=== PATIENT | female | born 1990 | race Caucasian/White ===

== ENCOUNTER 2016-07-01 13:19 | Emergency (ER) | payer MEDICAID, OTHER ==
[~2016-07-01] VITALS: Wt 56.3 kg
[2016-07-01 14:44] LABS: ADD SCAN DIFF NO
[2016-07-01 14:46] LABS: BASOPHIL # 0.1 10^3/ul (0.0-0.1); BASOPHILS % 0.7 % (0.0-2.0); EOSINOPHILS # 0.1 10^3/ul (0.0-0.5); EOSINOPHILS % 0.9 % (0.0-7.0); HEMATOCRIT 39.3 % (37.0-47.0); HEMOGLOBIN 13.1 g/dl (12.0-16.0); LYMPHOCYTES # 1.7 10^3/ul (0.8-2.9); LYMPHOCYTES % 22.4 % (15.0-51.0); MEAN CORPUSCULAR HEMOGLOBIN 29.4 pg (29.0-33.0); MEAN CORPUSCULAR HGB CONC 33.3 g/dl (32.0-37.0); MEAN CORPUSCULAR VOLUME 88.1 fl (82.0-101.0); MEAN PLATELET VOLUME 10.3 fl (7.4-10.4); MONOCYTE # 0.4 10^3/ul (0.3-0.9); MONOCYTES % 4.7 % (0.0-11.0); NEUTROPHIL # 5.4 10^3/ul (1.6-7.5); PLATELET COUNT 226 10^3/UL (140-415); RED BLOOD COUNT 4.46 10^6/ul (4.20-5.40); RED CELL DISTRIBUTION WIDTH 12.2 % (11.5-14.5); WHITE BLOOD COUNT 7.6 10^3/ul (4.8-10.8)
[2016-07-01 14:58] LABS: ADD UMIC YES; URINE BILIRUBIN (Dip) NEGATIVE (NEGATIVE); URINE BLOOD (Dip) 3+ (NEGATIVE); URINE COLOR LT. YELLOW (YELLOW); URINE GLUCOSE (Dip) NEGATIVE (NEGATIVE); URINE KETONES (Dip) NEGATIVE (NEGATIVE); URINE LEUKOCYTE ESTERASE (Dip) TRACE (NEGATIVE); URINE NITRITE (Dip) NEGATIVE (NEGATIVE); URINE TOTAL PROTEIN (Dip) NEGATIVE (NEGATIVE); URINE UROBILINOGEN (Dip) 0.2 E.U./dL (0.1-1.0)
[2016-07-01 15:19] LABS: BACTERIA,URINE FEW; SQUAMOUS EPITHELIAL CELL,UR MODERATE
--- NOTE | 2016-07-01 16:08 | RADRPT ---
PROCEDURE: US Pelvis/OB. CLINICAL INDICATION: vaginal bleeding TECHNIQUE: Multiple sonographic images of the pelvis were obtained utilizing a transabdominal and endovaginal technique. The images were reviewed on a PACS workstation. COMPARISON: None. FINDINGS: There is a small cystic structure within the endometrium measuring 0.6 cm which would correspond to a calculated gestational age of 5 weeks and 1 days. No pole or yolk sac is yet visualized. The ovaries are normal. No abnormal adnexal masses are present. The right ovary measures 2.2 x 1.6 x 1.7 cm. The left ovary measures 3.1 x 1.9 x 2.7 cm. There is a small amount of free fluid in the pelvis. RPTAT: AA IMPRESSION: Possible early intrauterine at 5 weeks and 1 day. Close followup ultrasound and hCG is recommended. .Maximo Romano MD, Date Time Electronically viewed and signed by .Maximo Romano MD, on 07/01/2016 16:08 .S/
--- NOTE | 2016-07-01 16:14 | ERD ---
ER Documentation Chief Complaint Date/Time DATE: 07/01/16 TIME: 16:12 Chief Complaint 6 WEEKS WITH SPOTTING TODAY HPI This 26-year-old female is approximately 6 week by dates. She has some vaginal spotting today. She did have a Pap smear 2 days ago. She has some minimal suprapubic pain. She has fevers or vomiting, urinary complaints. She is a G1 para 0 per ROS All systems reviewed and are negative except as per history of present illness. Physical Exam Vitals Vital Signs Date Time Temp Pulse Resp B/P Pulse Ox O2 Delivery O2 Flow Rate FiO2 07/01/16 13:22 98.2 78 18 112/56 99 Physical Exam Const: [] Alert, [id number] per Head: Atraumatic Eyes: Normal Conjunctiva ENT: Normal External Ears, Nose and Mouth. Neck: Full range of motion..~ No meningismus. Resp: Clear to auscultation bilaterally Cardio: Regular rate and rhythm, no murmurs Abd: Soft, non tender, non distended. Normal bowel sounds Skin: No petechiae or rashes Back: No midline or flank tenderness Ext: No cyanosis, or edema Neur: Awake and alert Psych: Normal Mood and Affect Result Diagram: 07/01/16 1435 Results 24 hrs Laboratory Tests Test 07/01/16 14:25 07/01/16 14:35 Urine Color LT. YELLOW Urine Clarity SLIGHTLY CLOUDY Urine pH 6.0 Urine Specific [place] <=1.005 Urine Ketones NEGATIVE Urine Nitrite NEGATIVE Urine Bilirubin NEGATIVE Urine Urobilinogen 0.2 E.U./dL Urine Leukocyte Esterase TRACE Urine Microscopic RBC 10-25/HPF Urine Microscopic WBC 2-5/HPF Urine Squamous Epithelial Cells MODERATE Urine Bacteria FEW Urine Hemoglobin 3+ Urine Glucose NEGATIVE% Urine Total Protein NEGATIVE White Blood Count 7.610^3/ul Red Blood Count 4.4610^6/ul Hemoglobin 13.1g/dl Hematocrit 39.3% Mean Corpuscular Volume 88.1fl Mean Corpuscular Hemoglobin 29.4pg Mean Corpuscular Hemoglobin Concent 33.3g/dl Red Cell Distribution Width 12.2% Platelet Count 08636^3/UL Mean Platelet Volume 10.3fl Neutrophils % 71.0% Lymphocytes % 22.4% Monocytes % 4.7% Eosinophils % 0.9% Basophils % 0.7% Nucleated Red Blood Cells % 0.0/100WBC Neutrophils # 5.410^3/ul Lymphocytes # 1.710^3/ul Monocytes # 0.410^3/ul Eosinophils # 0.110^3/ul Basophils # 0.110^3/ul Nucleated Red Blood Cells # 0.010^3/ul Beta HCG, Quantitative 3901.4mIU/ml Procedures/MDM Patient is Rh+. Pelvic ultrasound shows approximately 5 week 1 day gestational sac without visible pole or yolk sac. There is no adnexal masses. Quantitative hCG is 3901. Patient presents with vaginal spotting first trimester . Differential includes early normal , threatened , ectopic . She will be discharged home with further observation instructions for recheck in 2 days. She should return sooner for fevers, vomiting, worsening pain, new worsening symptoms. Signs or symptoms do not suggest acute abdomen, appendicitis, additional causes of abdominal pain. Departure Diagnosis: Primary Impression: Vaginal bleeding in patient at less than 20 weeks ges... Condition: Stable Patient Instructions: Bleeding During Early Additional Instructions: Early seen but cannot rule out ectopic or other abnormalities currently. Recommend recheck in 2 days for repeat hormone levels and further evaluation. Recheck sooner for fevers and new symptoms FAREED JONES MD Jul 01, 2016 16:14
== END 2016-07-01 16:30 | disposition home or self-care (01) ==
LOC: FTE 13:19
DX: O20.9 Hemorrhage in early pregnancy, unspecified (principal); Z3A.01 Less than 8 weeks gestation of pregnancy
CPT/HCPCS: 36415; 76801; 76817; 81001; 81003; 84702; 85025; 86900; 86901; Z7502

== ENCOUNTER 2016-07-03 11:32 | Emergency (ER) | payer MEDICAID ==
[~2016-07-03] VITALS: Wt 69.0 kg
[2016-07-03 13:40] LABS: ADD SCAN DIFF NO
[2016-07-03 13:43] LABS: BASOPHILS % 0.4 % (0.0-2.0); EOSINOPHILS # 0.2 10^3/ul (0.0-0.5); EOSINOPHILS % 2.3 % (0.0-7.0); HEMATOCRIT 42.7 % (37.0-47.0); LYMPHOCYTES % 27.4 % (15.0-51.0); MEAN CORPUSCULAR HEMOGLOBIN 29.6 pg (29.0-33.0); MEAN CORPUSCULAR HGB CONC 32.8 g/dl (32.0-37.0); MEAN CORPUSCULAR VOLUME 90.3 fl (82.0-101.0); MEAN PLATELET VOLUME 10.1 fl (7.4-10.4); MONOCYTE # 0.4 10^3/ul (0.3-0.9); NEUTROPHIL # 4.7 10^3/ul (1.6-7.5); NEUTROPHILS % 63.6 % (39.0-77.0); PLATELET COUNT 236 10^3/UL (140-415); RED BLOOD COUNT 4.73 10^6/ul (4.20-5.40); RED CELL DISTRIBUTION WIDTH 12.2 % (11.5-14.5); WHITE BLOOD COUNT 7.3 10^3/ul (4.8-10.8)
--- NOTE | 2016-07-03 14:41 | RADRPT ---
PROCEDURE: OB Ultrasound. CLINICAL INDICATION: Positive test. Vaginal bleeding. TECHNIQUE: Ultrasound of the pelvis was performed with transabdominal and transvaginal sonography in the axial and sagittal planes. COMPARISON: No prior study is available for comparison. FINDINGS: There is no intrauterine gestational sac. The uterus measures 7.7 x 3.6 x 4.1 cm and appears unrema rkable. Endometrial thickness is 4.7 mm. The right ovary appears normal measuring 2.5 x 1.0 x 1.3 cm. The left ovary appears normal measuring 2.6 x 1.6 x 1.9 cm. Color Doppler and pulsed Doppler sonography demonstrate normal flow to the ovaries. There is no other pelvic mass or free fluid. IMPRESSION: 1. No intrauterine gestational sac. If the patient has a positive test, ectopic gestatio n cannot be excluded. 2. Otherwise unremarkable study. RPTAT: QQ .Steve Dwyer MD, MD Date Time Electronically viewed and signed by .Steve Dwyer MD, MD on 07/03/2016 14:41 .R/
[2016-07-03 14:52] LABS: ADD UMIC YES; URINE BILIRUBIN (Dip) NEGATIVE (NEGATIVE); URINE BLOOD (Dip) 3+ (NEGATIVE); URINE COLOR LT. YELLOW (YELLOW); URINE GLUCOSE (Dip) NEGATIVE (NEGATIVE); URINE KETONES (Dip) NEGATIVE (NEGATIVE); URINE LEUKOCYTE ESTERASE (Dip) 1+ (NEGATIVE); URINE NITRITE (Dip) NEGATIVE (NEGATIVE); URINE TOTAL PROTEIN (Dip) NEGATIVE (NEGATIVE); URINE UROBILINOGEN (Dip) 0.2 E.U./dL (0.1-1.0)
[2016-07-03 15:18] LABS: BACTERIA,URINE FEW; URINE RBCS 25-50 /HPF (0)
[2016-07-03] MEDS ORDERED: NITR-58 PO (15:26)
--- NOTE | 2016-07-03 15:51 | ERD ---
ER Documentation Chief Complaint Date/Time DATE: 07/03/16 TIME: 15:49 Chief Complaint VAG BLEED 6 WEEKS PREG HPI This is a 26-year-old female presents to the ER with continued vaginal bleeding. Patient was seen here on Thursday and was told to follow-up today. Patient has pelvic cramping. A0. Patient denies any urinary frequency or dysuria. She does not have any vaginal discharge. Patient denies any nausea vomiting or diarrhea. ROS 12 point review of systems was done, all negative except per HPI. Medications Home Meds Active Scripts Nitrofurantoin Monohyd Macrocr* (Macrobid*) 100 Mg Capsr, 100 MG PO BID for 7 Days, CAP Prov:JAYACHIO Tucker 07/03/16 Allergies Allergies: Coded Allergies: No Known Allergy (Unverified , 07/01/16) PMhx/Soc Medical and Surgical Hx: pt denies Medical Hx, pt denies Surgical Hx Hx Alcohol Use: No Hx Substance Use: No Hx Tobacco Use: No Physical Exam Vitals Vital Signs Date Time Temp Pulse Resp B/P Pulse Ox O2 Delivery O2 Flow Rate FiO2 07/03/16 11:35 98.0 69 18 114/74 99 Physical Exam GENERAL: The patient is well developed and appropriate for usual state of health , in no apparent distress. HEENT: Atraumatic. CHEST: Clear to auscultation bilaterally. There are no rales, wheezes or rhonchi. HEART: Regular rate and rhythm. No murmurs, clicks, rubs or gallops. ABDOMEN: Soft, nontender and nondistended. Good bowel sounds. No rebound or guarding. No gross peritonitis. No gross organomegaly or masses. No Mcqueen sign or McBurney point tenderness. BACK: No midline or flank tenderness. NEURO: Alert and oriented. SKIN: There is no apparent rash or petechia. The skin is warm and dry. Result Diagram: 07/03/16 1320 Results 24 hrs Laboratory Tests Test 07/03/16 13:20 07/03/16 13:25 White Blood Count 7.310^3/ul Red Blood Count 4.7310^6/ul Hemoglobin 14.0g/dl Hematocrit 42.7% Mean Corpuscular Volume 90.3fl Mean Corpuscular Hemoglobin 29.6pg Mean Corpuscular Hemoglobin Concent 32.8g/dl Red Cell Distribution Width 12.2% Platelet Count 34266^3/UL Mean Platelet Volume 10.1fl Neutrophils % 63.6% Lymphocytes % 27.4% Monocytes % 6.0% Eosinophils % 2.3% Basophils % 0.4% Nucleated Red Blood Cells % 0.0/100WBC Neutrophils # 4.710^3/ul Lymphocytes # 2.010^3/ul Monocytes # 0.410^3/ul Eosinophils # 0.210^3/ul Basophils # 0.010^3/ul Nucleated Red Blood Cells # 0.010^3/ul Beta HCG, Quantitative 1213.5mIU/ml Urine Color LT. YELLOW Urine Clarity CLEAR Urine pH 7.0 Urine Specific [place] 1.010 Urine Ketones NEGATIVE Urine Nitrite NEGATIVE Urine Bilirubin NEGATIVE Urine Urobilinogen 0.2 E.U./dL Urine Leukocyte Esterase 1+ Urine Microscopic RBC 25-50/HPF Urine Microscopic WBC 2-5/HPF Urine Epithelial Cells FEW Urine Bacteria FEW Urine Hemoglobin 3+ Urine Glucose NEGATIVE% Urine Total Protein NEGATIVE Procedures/MDM Differential diagnosis: Threatened , missed , incomplete , ectopic , molar , UTI, pyelonephritis. This is a 26 -year-old female that presents to the ER with continued vaginal bleeding at this time there is no evidence of intrauterine gestation anymore. Patient's quantitative hCG has significantly diminished and is below 1500. Suspicion for ectopic is low. Given patient's history this is likely a miscarriage. Patient needs to follow-up with her INTERVENTIONAL PHYSIATRIST within 1-2 days return to ER sooner if symptoms worsen. My medical decision making was discussed with the patient she understands and agrees with plan Departure Diagnosis: Primary Impression: Miscarriage Condition: Stable Patient Instructions: Miscarriage Additional Instructions: Llame al doctor MAANA y sandra reinier WENDIE PARA DENTRO DE 1-2 MCCALLUM.Dgale a la secretaria que nosotros le instruimos hacer esta wendie.Avise o llame si estrada condicin se empeora antes de la wendie. Regresa aqui si peor o no mejor. CHIO [place] Jul 03, 2016 15:51
== END 2016-07-03 15:35 | disposition home or self-care (01) ==
LOC: FTE 11:32
DX: O03.9 Complete or unspecified spontaneous abortion without complication (principal); R10.2 Pelvic and perineal pain
CPT/HCPCS: 36415; 76801; 76817; 81001; 81003; 84702; 85025; Z7502